=== PATIENT | female | born 1980 | race Caucasian/White ===

== ENCOUNTER 2018-11-06 10:25 | Outpatient (CLI) | payer BC ==
--- NOTE | 2018-11-06 11:24 | RAD ---
CERVICAL SPINE RADIOGRAPHS FIVE VIEWS: Date: 11-06-18 Provided Clinical History: Neck pain status post injury. FINDINGS: Cervical alignment appears normal. There is no evidence for abnormal translational motion with flexio n and extension. There is no evidence for fracture. No prevertebral soft tissue swelling apparent. Th e visualized lung apices appear clear. IMPRESSION: Normal cervical spine radiographs. POS: [facility]
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
--- NOTE | 2018-11-06 11:26 | RAD ---
THORACIC SPINE RADIOGRAPHS THREE VIEWS: Date: 11-06-18 Provided Clinical History: Back pain status post injury. FINDINGS: Thoracic alignment appears normal. Vertebral body heights appear preserved. Pedicles appear intact. IMPRESSION: No evidence for an acute osseous abnormality. POS: [facility]
--- NOTE | 2018-11-06 12:00 | RAD ---
LUMBAR SPINE RADIOGRAPHS TWO VIEWS: Date: 11-06-18 Provided Clinical History: Back pain status post injury. FINDINGS: Five non-rib bearing lumbar type vertebral bodies are present. Lumbar alignment appears normal. Verte bral body heights appear preserved. There is linear radiolucency traversing the terminal aspects of t he right transverse process of L2 suspicious for a nondisplaced fracture. Pedicles appear intact. IMPRESSION: Suspected nondisplaced right L2 transverse process fracture. POS: [facility]
== END 2018-11-06 10:26 | disposition home or self-care (01) ==
LOC: SCSRAD 10:25
PROVIDERS: ATTEND Nurse Practitioner Family
DX: S16.1XXD Strain of muscle, fascia and tendon at neck level, subsequent encounter (principal); M25.511 Pain in right shoulder; M54.9 Dorsalgia, unspecified; M54.5 Low back pain; V89.2XXA Person injured in unspecified motor-vehicle accident, traffic, initial encounter
CPT/HCPCS: 72050; 72072; 72100

== ENCOUNTER 2018-11-20 07:39 | Outpatient (CLI) | payer BC ==
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
--- NOTE | 2018-11-20 10:41 | MRI ---
MRI LUMBAR SPINE: Date: 11/20/18 COMPARISON: None. HISTORY: Prior history of closed fracture transverse process of lumbar spine. TECHNIQUE: Multiplanar, multisequence MR imaging of the lumbar spine is provided without contrast media. FINDINGS: The sagittal STIR imaging demonstrates no focal area of osseous marrow edema. Lumbar vertebral body h eight and alignment appears within normal limits. Prior radiograph performed 11/06/18 demonstrated a possible nondisplaced right L2 transverse process fracture. No residual edema is evident in this region. On the basis of five lumbar-type vertebral bodies, the conus medullaris terminates at the L1-2 level. T12-L1: Intervertebral disc height and signal intensity is within normal limits with no significant central canal or neural foraminal stenosis. L1-2: Intervertebral disc height and signal intensity is within normal limits with no significant ce ntral canal or neural foraminal stenosis. L2-3: Intervertebral disc height and signal intensity within normal limits. No significant central c anal or neural foraminal stenosis. L3-4: Intervertebral disc height and signal intensity appears within normal limits. No significant c entral canal or neural foraminal stenosis. There is a fracture of the L4 pedicle on the right anteriorly with no associated edema. This could be related to prior trauma or could be a congenital abnormality. There is no evidence for a fracture of the contralateral left L4 pedicle. L5-S1: Intervertebral disc height and signal intensity grossly unremarkable. Mild bilateral facet hy pertrophy with no significant central canal or neural foraminal stenosis. There is a probable unilate ral pars defect on the right at L5. No discrete pars defect is seen on the left at L5. The imaged retroperitoneal structures demonstrate no acute findings. IMPRESSION: 1. No significant central canal or neural foraminal stenosis is seen within the lumbar spine. 2. Findings suggesting a remote/chronic fracture of the pedicle on the right at L4 and at the level of the pars interarticularis on the right at L5. These findings may be better assessed via CT if clin ically warranted. No edema is present to suggest the presence of acute fracture and there is no anter olisthesis within the lumbar spine. POS: [facility]
== END 2018-11-20 07:40 | disposition home or self-care (01) ==
LOC: TBSIIMAG 07:39
PROVIDERS: ATTEND Nurse Practitioner Family
DX: S32.009A Unspecified fracture of unspecified lumbar vertebra, initial encounter for closed fracture (principal); M54.12 Radiculopathy, cervical region; M54.16 Radiculopathy, lumbar region
CPT/HCPCS: 72141; 72148

== ENCOUNTER 2018-12-02 09:51 | Outpatient (CLI) | payer BC ==
--- NOTE | 2018-12-02 12:11 | RAD ---
LUMBAR SPINE RADIOGRAPH SERIES 4 VIEWS INCLUDING BENDING VIEWS: INDICATION: M43.06, back pain. FINDINGS: There is no compression fracture or significant subluxation by neutral positioning. With flexion and extension imaging, there are no sites of significant, abnormal translational motion. Disk space hei ghts are relatively well preserved. IMPRESSION: No significant abnormality of the lumbar spine identified by radiographic imaging. POS: [facility]
== END 2018-12-02 09:52 | disposition home or self-care (01) ==
LOC: SCSRAD 09:51 → MERGE 09:51 → SCSRAD 09:52
PROVIDERS: ATTEND Nurse Practitioner Family
DX: M43.06 Spondylolysis, lumbar region (principal)
CPT/HCPCS: 72120

== ENCOUNTER 2019-01-13 09:29 | Outpatient (CLI) | payer BC ==
--- NOTE | 2019-01-13 10:00 | RAD ---
XR Ribs Rt>= 2 View W/PA CXR History: [Rib pain R07.81] Comparison: None. Findings: The lungs are clear. No pneumothorax or effusion. Cardiac silhouette and mediastinal contou rs are within normal limits. Thoracic spine vertebral body heights are maintained. No displaced right rib fracture. Impression: No displaced right rib fracture.
== END 2019-01-13 09:30 | disposition home or self-care (01) ==
LOC: SCSRAD 09:29
PROVIDERS: ATTEND Nurse Practitioner Family
DX: R07.81 Pleurodynia (principal)

== ENCOUNTER 2019-10-01 09:27 | Outpatient (CLI) | payer BC ==
[~2019-10-01 09:27] MED LIST: EPINEPHrine 1 MG/ML AMP ONE; Gadobenate Dimeglumine 529 MG/1 ML (20ML VIAL) ONE; Iopamidol 300 61% 50 ML VIAL FS ONE; Lidocaine 1% PF 10 ML AMP ONE
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
[2019-10-01] MEDS ORDERED: Magnevist 469MG/ML 20 ML VIAL ONE (14:23)
--- NOTE | 2019-10-01 14:45 | MRI ---
MRI RIGHT SHOULDER: Date: 10/01/2019 PROVIDED CLINICAL HISTORY: Right shoulder pain. FINDINGS: The components of the rotator cuff appear intact. The long head biceps tendon appears intact and norm ally located. The glenoid labrum and glenohumeral articular cartilage appear normal. There is mild acromioclavicular joint osteoarthrosis. There is greater than physiologic subacromial/s ubdeltoid bursal fluid, which does not contain Gadolinium contrast material. No focal concerning regional marrow or muscular signal abnormality apparent. IMPRESSION: 1. No evidence for rotator cuff or glenoid labral tear. 2. Conspicuous subacromial/subdeltoid bursal fluid. This may reflect bursitis or sequelae of therape utic injection. POS: [facility]
== END 2019-10-01 09:28 | disposition home or self-care (01) ==
LOC: RAD 09:27
PROVIDERS: ATTEND Orthopaedic Surgery
DX: S46.911A Strain of unspecified muscle, fascia and tendon at shoulder and upper arm level, right arm, initial encounter (principal)
CPT/HCPCS: 23350; A9577; A9579; J0171; J2001; Q9967